=== PATIENT | male | born 1940 | race Caucasian/White ===

== ENCOUNTER 2016-07-04 14:34 | Observation (INO) | payer MEDICARE, BC ==
[2016-07-04] MEDS ORDERED: ASPIRIN 81 MG TABLET, CHEWABLE PO ONE (15:02)
--- NOTE | 2016-07-04 15:03 | ER Document Report ---
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 Original Note: ED Medical Screen (RME) - General Stated Complaint: CHEST PAIN Mode of Arrival: Wheelchair Information source: Patient Notes: Patient presents complaining of chest pain that started yesterday. Patient states that he took nitroglycerin at home that helped his chest pain although it is not completely resolved. Pt reports feeling lightheaded at home and had vision that "flickered". hx: CVA, hypertension, diabetes, stents 3 I have greeted and performed a rapid initial assessment of this patient. A comprehensive ED assessment and evaluation of the patient, analysis of test results and completion of the medical decision making process will be conducted by additional ED providers. TRAVEL OUTSIDE OF THE [place] IN LAST 30 DAYS: No - Related Data Allergies/Adverse Reactions: No Known Allergies Allergy (Verified 04/13/13 23:49) Past Medical History - Past Medical History Cardiac Medical History: Reports: Hx Atrial Fibrillation, Hx Hypercholesterolemia, Hx Hypertension Endocrine Medical History: Reports: Hx Diabetes Mellitus Type 2 GI Medical History: Reports: Hx Gastroesophageal Reflux Disease Past Surgical History: Reports: Hx Cardiac Surgery - carotid, angioplasty, Hx Tonsillectomy - Immunizations Hx Diphtheria, Pertussis, Tetanus Vaccination: Yes Physical Exam - Cardiovascular Rhythm: Regular Heart sounds: S1 appreciated, S2 appreciated
[2016-07-04 15:27] LABS: ABSOLUTE LYMPHOCYTES (AUTO) 1.4 10^3/uL (0.5-4.7); ABSOLUTE MONOCYTES (AUTO) 0.6 10^3/uL (0.1-1.4); ABSOLUTE NEUT (AUTO) 9.5 10^3/uL (1.7-8.2); BASOPHILS % (AUTO) 0.3 % (0-2); EOSINOPHILS % (AUTO) 0.2 % (0-6); HEMOGLOBIN 12.6 g/dL (13.5-17.0); HGB HCT DIFFERENCE 0.8; LYMPHOCYTES % (AUTO) 12.1 % (13-45); MEAN CORPUSCULAR HEMOGLOBIN 32.7 pg (27.0-33.4); MEAN CORPUSCULAR HGB CONC 34.1 g/dL (32.0-36.0); MEAN CORPUSCULAR VOLUME 96 fl (80-97); MONOCYTES % (AUTO) 4.9 % (3-13); RED BLOOD COUNT 3.85 10^6/uL (4.35-5.55); RED CELL DISTRIBUTION WIDTH 13.3 % (11.5-14.0); SEGMENTED NEUTROPHILS % (AUTO) 82.5 % (42-78); WHITE BLOOD COUNT 11.5 10^3/uL (4.0-10.5)
[2016-07-04 15:49] LABS: ALANINE AMINOTRANSFERASE 40 U/L (21-72); ALBUMIN 3.9 g/dL (3.5-5.0); ALKALINE PHOSPHATASE 85 U/L (38-126); ANION GAP 12 (5-19); ASPARTATE AMINO TRANSFERASE 26 U/L (17-59); BILIRUBIN,TOTAL 0.7 mg/dL (0.2-1.3); BLOOD UREA NITROGEN 27 mg/dL (7-20); CALCIUM 9.4 mg/dL (8.4-10.2); CARBON DIOXIDE 26 mmol/L (22-30); CHLORIDE 102 mmol/L (98-107); CREATINE KINASE 57 U/L (55-170); CREATININE RESULT 1.12 mg/dL (0.52-1.25); GLUCOSE 119 mg/dL (75-110); LIPASE 124.4 U/L (23-300); MAGNESIUM 1.6 mg/dL (1.6-2.3); POTASSIUM 4.3 mmol/L (3.6-5.0); SODIUM 139.7 mmol/L (137-145); TOTAL PROTEIN 6.4 g/dL (6.3-8.2)
[2016-07-04 16:01] LABS: TROPONIN I < 0.012 ng/mL
--- NOTE | 2016-07-04 17:42 | ER Document Report ---
ED General - General Chief Complaint: Chest Pain Stated Complaint: CHEST PAIN Mode of Arrival: Wheelchair Information source: Patient, Relative Notes: 76-year-old male history of triple bypass presents with complaints of chest pain that started earlier today. Patient notes chest pain associated with shortness of breath difficult to breathing. Patient denies any fevers or chills TRAVEL OUTSIDE OF THE [place] IN LAST 30 DAYS: No - HPI Onset: Just prior to arrival Onset/Duration: Persistent Quality of pain: Pressure Severity: Mild Pain Level: 1 Associated symptoms: Chest pain, Shortness of breath Exacerbated by: Walking Relieved by: Denies Similar symptoms previously: Yes Recently seen / treated by doctor: Yes - Related Data Allergies/Adverse Reactions: No Known Allergies Allergy (Verified 04/13/13 23:49) Home Medications: Current Home Medications Acetaminophen [Tylenol Extra Strength 500 mg Tablet] 2 tab PO BID 07/04/16 [ History] Alfuzosin HCl [Alfuzosin HCl ER] 10 mg PO QPM 07/04/16 [History] Amlodipine Besylate [Norvasc 5 mg Tablet] 5 mg PO Q12 07/04/16 [History] Ascorbic Acid [Vitamin C] 1,000 mg PO DAILY 07/04/16 [History] Aspirin [Aspirin 81 mg Chewable Tablet] 81 mg PO QPM 07/04/16 [History] Atorvastatin Calcium [Lipitor 80 mg Tablet] 80 mg PO QHS 07/04/16 [History] Calcium Carb/Magnesium Oxid/D3 [Calcium Magnesium + D Tablet] 1 each PO BID 11/12 [History] Ferrous Sulfate [Feosol 325 mg Tablet] 325 mg PO QPM 07/04/16 [History] Glipizide 5 mg PO DAILY 07/04/16 [History] Hydralazine HCl [Apresoline 50 mg Tablet] 50 mg PO Q12 07/04/16 [History] Hydrochlorothiazide 25 mg PO DAILY 07/04/16 [History] Losartan Potassium [Cozaar 100 mg Tablet] 100 mg PO DAILY 07/04/16 [History] Metformin HCl [Glucophage] 500 mg PO BIDACBS 07/04/16 [History] Multivitamin [Multivitamins] 1 each PO DAILY 07/04/16 [History] Omeprazole 20 mg PO BID 07/04/16 [History] Tolterodine Tartrate [Tolterodine Tartrate ER] 4 mg PO QPM 07/04/16 [History] Past Medical History - General Information source: Patient - Social History Smoking Status: Unknown if Ever Smoked Cigarette use (# per day): No Chew tobacco use (# tins/day): No Smoking Education Provided: No Family History: Reviewed & Not Pertinent Patient has suicidal ideation: No Patient has homicidal ideation: No - Past Medical History Cardiac Medical History: Reports: Hx Atrial Fibrillation, Hx Hypercholesterolemia, Hx Hypertension Endocrine Medical History: Reports: Hx Diabetes Mellitus Type 2 Renal/ Medical History: Denies: Hx Peritoneal Dialysis GI Medical History: Reports: Hx Gastroesophageal Reflux Disease Past Surgical History: Reports: Hx Cardiac Surgery - carotid, angioplasty, Hx Tonsillectomy - Immunizations Hx Diphtheria, Pertussis, Tetanus Vaccination: Yes Review of Systems - Review of Systems Notes: REVIEW OF SYSTEMS: CONSTITUTIONAL : Denies fever, chills, or sweats. Denies recent illness. EENT: Denies eye, ear, throat, or mouth pain or symptoms. Denies nasal or sinus congestion or discharge. Denies throat, tongue, or mouth swelling or difficulty swallowing. CARDIOVASCULAR: Admits to chest pain RESPIRATORY: Admits shortness of breath GASTROINTESTINAL: Denies abdominal pain or distention. Denies nausea, vomiting , or diarrhea. Denies blood in vomitus, stools, or per rectum. Denies black, tarry stools. Denies constipation. GENITOURINARY: Denies difficulty urinating, painful urination, burning, frequency, blood in urine, or discharge. MUSCULOSKELETAL: Denies back or neck pain or stiffness. Denies joint pain or swelling. SKIN: Denies rash, lesions or sores. HEMATOLOGIC : Denies easy bruising or bleeding. LYMPHATIC: Denies swollen, enlarged glands. NEUROLOGICAL: Denies confusion or altered mental status. Denies passing out or loss of consciousness. Denies dizziness or lightheadedness. Denies headache. Denies weakness or paralysis or loss of use of either side. Denies problems with gait or speech. Denies sensory loss, numbness, or tingling. Denies seizures. PSYCHIATRIC: Denies anxiety or stress. Denies depression, suicidal ideation, or homicidal ideation. ALL OTHER SYSTEMS REVIEWED AND NEGATIVE. Dictation was performed using Cued voice recognition software PHYSICAL EXAMINATION: GENERAL: Well-appearing, well-nourished and in no acute distress. HEAD: Atraumatic, normocephalic. EYES: Pupils equal round and reactive to light, extraocular movements intact, sclera anicteric, conjunctiva are normal. ENT: Nares patent, oropharynx clear without exudates. Moist mucous membranes. NECK: Normal range of motion, supple without lymphadenopathy LUNGS: Breath sounds clear to auscultation bilaterally and equal. No wheezes rales or rhonchi. HEART: Regular rate and rhythm without murmurs ABDOMEN: Soft, nontender, nondistended abdomen. No guarding, no rebound. No masses appreciated. Musculoskeletal: Normal range of motion, no pitting or edema. No cyanosis. NEUROLOGICAL: Cranial nerves grossly intact. Normal speech, normal gait. Normal sensory, motor exams PSYCH: Normal mood, normal affect. SKIN: Warm, Dry, normal turgor, no rashes or lesions noted. Physical Exam - Vital signs Vitals: Pulse Ox 96 07/04/16 17:02 Course - Re-evaluation Re-evalutation: 07/04/16 20:25 Given patient's significant cardiac history and complaints of chest pain I do believe an observation overnight is appropriate for sit cardiac enzymes EKG are normal at this time - Vital Signs Vital signs: Temp Pulse Resp BP Pulse Ox 12 130/82 H 97 07/04/16 18:01 07/04/16 18:01 07/04/16 18:01 - Laboratory Result Diagrams: 07/04/16 15:10 07/04/16 15:10 Laboratory results interpreted by me: 07/04/16 07/04/16 15:10 15:10 WBC 11.5 H RBC 3.85 L Hgb 12.6 L Hct 37.0 L Seg Neutrophils % 82.5 H Lymphocytes % 12.1 L Absolute Neutrophils 9.5 H BUN 27 H Glucose 119 H - Diagnostic Test Radiology reviewed: Image reviewed, Reports reviewed - EKG Interpretation by [place] EKG shows normal: Sinus rhythm, [place], Intervals, QRS Complexes Discharge - Discharge Clinical Impression: Chest pain Qualifiers: Chest pain type: unspecified Qualified Code(s): R07.9 - Chest pain, unspecified Coronary artery disease Qualifiers: Coronary Disease-Associated Artery/Lesion type: unspecified vessel or lesion type [place] vs. transplanted heart: [place] heart Associated angina: without angina Qualified Code(s): I25.10 - Atherosclerotic heart disease of [place] coronary artery without angina pectoris Condition: Stable Disposition: HOME, SELF-CARE Admitting Provider: Hospitalist Unit Admitted: Telemetry
[2016-07-04] MEDS ORDERED: LIDOCAINE 2% VISCOUS SOLN 20 ML UDCUP PO PRN (18:26)
[2016-07-04] MEDS ORDERED: MAG HYDROX/AL HYDROX/SIMETH SUSP 30 ML UDCUP PO PRN (18:26)
[2016-07-04] MEDS ORDERED: METOCLOPRAMIDE HCL ORAL SOLN 10 MG/10 ML UDCUP PO PRN (18:26)
[2016-07-04] MEDS ORDERED: DEXTROSE 40% GEL 15 GM TUBE PO PRN ×2 (18:26)
[2016-07-04] MEDS ORDERED: INSULIN REG, HUMAN 100 UNIT/ML 3 ML VIAL (PYX) SUBCUT PRN (18:26)
[2016-07-04] MEDS ORDERED: DEXTROSE 50%-WATER 25 GM/50 ML DISP.SYRIN IV PRN ×2 (18:26)
[2016-07-04] MEDS ORDERED: GLUCAGON,HUMAN RECOMB 1 MG INJ IM PRN (18:26)
--- NOTE | 2016-07-04 18:39 | PDOC H&P ---
History of Present Illness Patient complains of: Chest pain History of Present Illness: NELA ALVARADO is a 76 year old male with a history of coronary artery disease with history of PTCA done by Dr. Tho Slater [facility] who presents with chest pain. Patient reports that he began experiencing chest pain yesterday evening after eating ice cream. He described it as substernal chest pressure. It did not radiate. There was no associated nausea or diaphoresis or palpitations. He experienced the same pain again today after eating breakfast with milk. When he told his that he was having chest discomfort she insisted that he come to the hospital. Patient denies having any associated shortness of breath. Denies any orthopnea or PND. Denies any dyspnea on exertion. Reports that when he had the pain was 8 out of 10 and lasted 2 or 3 minutes and then resolved spontaneously. The patient denies any cough. Denies any fevers or chills. he reports that this discomfort is different than what type of symptoms he was having prior to his coronary angioplasties. Past Medical History Cardiac Medical History: Reports: Atrial Fibrillation, Coronary Artery Disease, Hyperlipidema, Hypertension Neurological Medical History: Reports: Ischemic CVA Endocrine Medical History: Reports: Diabetes Mellitus Type 2 Malignancy Medical History: Reports: None GI Medical History: Reports: Gastroesophageal Reflux Disease Musculoskeltal Medical History: Reports: None Skin Medical History: Reports: None Psychiatric Medical History: Reports: None Traumatic Medical History: Reports: None Hematology: Reports: None Infectious Medical History: Reports: None Past Surgical History Past Surgical History: Reports: Carotid Endarterectomy, Coronary Stent, Tonsillectomy Social History Information Source: Patient Lives with: Spouse/Significant other Smoking Status: Never Smoker Frequency of Alcohol Use: None Hx Recreational Drug Use: No Drugs: None - Advance Directive Resuscitation Status: Full Code Family History Family History: Father at age 57 from coronary artery disease. Mother at age 86 with uterine cancer. Parental Family History Reviewed: Yes Children Family History Reviewed: No Sibling(s) Family History Reviewed.: No Medication/Allergy Home Medications: Amlodipine Besylate 1 tab PO DAILY 04/13/13 Ascorbic Acid [Vitamin C] 1,000 mg PO DAILY 04/13/13 Calcium Carb/Magnesium Oxid/D3 [Calcium Magnesium + D Tablet] 1 tab PO BID 04/13 Clopidogrel Bisulfate [Plavix 75 Mg Tablet] 75 mg PO DAILY 04/13/13 Glipizide [Glocotrol 5 Mg Tablet] 5 mg PO DAILY 04/13/13 Levalbuterol Tartrate [Xopenex Hfa] 2 puff IH Q8H 04/13/13 Losartan Potassium 100 mg PO DAILY 04/13/13 Metformin HCl [Glucophage 500 Mg Tablet] 500 mg PO BID 04/13/13 Multivitamin [Multi Vitamin Daily] 1 each PO DAILY 04/13/13 Omeprazole [Prilosec 20 mg Capsule] 20 mg PO BID 04/13/13 Simvastatin [Zocor 20 mg Tablet] 20 mg PO QHS 04/13/13 Tiotropium [place] [Spiriva [place] 18 mcg/dose (30 Dose)] 1 cap IH DAILY Meclizine HCl [Antivert 25 mg Tablet] 25 mg PO TID #20 tablet 04/14/13 Allergies/Adverse Reactions: No Known Allergies Allergy (Verified 04/13/13 23:49) Review of Systems Constitutional: ABSENT: chills, fever(s), headache(s), weight gain, weight loss Eyes: ABSENT: visual disturbances Ears: ABSENT: hearing changes Cardiovascular: PRESENT: as per HPI Respiratory: ABSENT: cough, hemoptysis Gastrointestinal: PRESENT: heartburn Musculoskeletal: ABSENT: joint swelling Integumentary: ABSENT: rash, wounds Neurological: ABSENT: abnormal gait, abnormal speech, confusion, dizziness, focal weakness, syncope Psychiatric: ABSENT: anxiety, depression Hematologic/Lymphatic: ABSENT: easy bleeding, easy bruising Physical Exam Vital Signs: Temp Pulse Resp BP Pulse Ox 98 07/04/16 17:03 General appearance: PRESENT: no acute distress, morbidly obese Head exam: PRESENT: atraumatic, normocephalic Eye exam: PRESENT: conjunctiva pink, EOMI, PERRLA. ABSENT: scleral icterus Ear exam: PRESENT: normal external ear exam Mouth exam: PRESENT: moist, tongue midline Neck exam: ABSENT: carotid bruit, JVD, lymphadenopathy, thyromegaly Respiratory exam: PRESENT: clear to auscultation sushma. ABSENT: rales, rhonchi, wheezes Cardiovascular exam: PRESENT: RRR. ABSENT: diastolic murmur, rubs, systolic murmur Pulses: PRESENT: normal dorsalis pedis pul GI/Abdominal exam: PRESENT: normal bowel sounds, soft. ABSENT: distended, guarding, mass, organolmegaly, rebound, tenderness Rectal exam: PRESENT: deferred Extremities exam: ABSENT: calf tenderness, clubbing, pedal edema Neurological exam: PRESENT: alert, awake, oriented to person, oriented to place , oriented to time, oriented to situation, CN II-XII grossly intact. ABSENT: motor sensory deficit Psychiatric exam: PRESENT: appropriate affect, normal mood. ABSENT: homicidal ideation, suicidal ideation Skin exam: PRESENT: dry, intact, warm. ABSENT: cyanosis, rash Results Laboratory Results: 07/04/16 15:10 07/04/16 15:10 07/04/16 07/04/16 15:10 15:10 WBC 11.5 H RBC 3.85 L Hgb 12.6 L Hct 37.0 L MCV 96 MCH 32.7 MCHC 34.1 RDW 13.3 Plt Count 185 Seg Neutrophils % 82.5 H Lymphocytes % 12.1 L Monocytes % 4.9 Eosinophils % 0.2 Basophils % 0.3 Absolute Neutrophils 9.5 H Absolute Lymphocytes 1.4 Absolute Monocytes 0.6 Absolute Eosinophils 0.0 Absolute Basophils 0.0 Sodium 139.7 Potassium 4.3 Chloride 102 Carbon Dioxide 26 Anion Gap 12 BUN 27 H Creatinine 1.12 Est GFR ( Amer) > 60 Est GFR (Non-Af Amer) > 60 Glucose 119 H Calcium 9.4 Magnesium 1.6 Total Bilirubin 0.7 AST 26 ALT 40 Alkaline Phosphatase 85 Total Protein 6.4 Albumin 3.9 Lipase 124.4 07/04/16 07/04/16 15:10 15:10 Creatine Kinase 57 CK-MB (CK-2) 0.80 Troponin I < 0.012 Impressions: Chest X-Ray 07/04/16 15:02 IMPRESSION: Few asymmetrical markings on the right that may represent atelectasis or infiltrate versus scarring that has developed since 2007. Assessment & Plan - Diagnosis (1) Chest pain Qualifiers: Chest pain type: unspecified Qualified Code(s): R07.9 - Chest pain, unspecified Is this a current diagnosis for this admission?: YesPlan: The patient does have a history of coronary artery disease and has had PTCA done by Dr. Plata at [facility]. This pain is different than what he's experienced previously however. Occurred both times after eating dairy products and he has had worsening acid reflux symptoms in spite of taking Prilosec. We will increase his PPI to twice a day. We'll check serial cardiac enzymes and monitor on telemetry. If his enzymes are negative he'll be able to be discharged and followed as an outpatient with his ambulatory technologist. We' ll also start the patient on GI cocktail. (2) Coronary artery disease Is this a current diagnosis for this admission?: YesPlan: Patient has a history of coronary artery disease but reports his pain is different. We'll continue with his Plavix. He is followed by [facility] in [place]. We'll check serial cardiac enzymes and monitor on telemetry. (3) Diabetes Is this a current diagnosis for this admission?: YesPlan: We'll hold his oral agents and cover with sliding scale insulin. (4) Hyperlipidemia Is this a current diagnosis for this admission?: YesPlan: Patient has been on Lipitor 80 mg daily. (5) Hypertension Is this a current diagnosis for this admission?: YesPlan: We'll continue with the Norvasc, losartan. (6) Atrial fibrillation Is this a current diagnosis for this admission?: YesPlan: Patient is currently in a regular rhythm. He is not on anticoagulation. Will defer that to his ambulatory technologist. (7) Gastroesophageal reflux disease Is this a current diagnosis for this admission?: YesPlan: Patient is on Prilosec as an outpatient. We will increase his PPI to twice a day. Also will give GI cocktail while hospitalized. - Time Time Spent: 50 to 70 Minutes - Plan Summary Plan Summary: We'll admit as an observation as I anticipate this will require less than a 2 midnight hospital stay.
[2016-07-04] MEDS ORDERED: ACETAMINOPHEN 325 MG TABLET PO PRN (20:56)
[2016-07-04] MEDS ORDERED: ONDANSETRON 4 MG TAB.RAPDIS PO PRN (20:57)
[2016-07-04] MEDS ORDERED: LIDOCAINE 2% VISCOUS SOLN 20 ML UDCUP PO ONE (21:00)
[2016-07-04] MEDS ORDERED: MAG HYDROX/AL HYDROX/SIMETH SUSP 30 ML UDCUP PO ONE (21:00)
[2016-07-04] MEDS ORDERED: METOCLOPRAMIDE HCL ORAL SOLN 10 MG/10 ML UDCUP PO ONE (21:15)
[2016-07-04] MEDS ORDERED: ATORVASTATIN CALCIUM 80 MG TABLET PO SCH (22:00)
[2016-07-05 00:13] LABS: CREATINE KINASE MB 0.65 ng/mL (<4.55)
[2016-07-05 00:15] LABS: TROPONIN I < 0.012 ng/mL
[2016-07-05 05:59] LABS: HEMATOCRIT 35.9 % (37.9-51.0); HEMOGLOBIN 12.2 g/dL (13.5-17.0); HGB HCT DIFFERENCE 0.7; MEAN CORPUSCULAR HEMOGLOBIN 32.1 pg (27.0-33.4); MEAN CORPUSCULAR VOLUME 95 fl (80-97); RED CELL DISTRIBUTION WIDTH 13.2 % (11.5-14.0); WHITE BLOOD COUNT 7.4 10^3/uL (4.0-10.5)
[2016-07-05] MEDS ORDERED: LANSOPRAZOLE 30 MG TAB.RAP.DR PO SCH (06:00)
[2016-07-05 06:22] LABS: ANION GAP 12 (5-19); BLOOD UREA NITROGEN 22 mg/dL (7-20); CALCIUM 8.9 mg/dL (8.4-10.2); CARBON DIOXIDE 26 mmol/L (22-30); CHLORIDE 104 mmol/L (98-107); CREATININE RESULT 0.81 mg/dL (0.52-1.25); GLUCOSE 101 mg/dL (75-110); MAGNESIUM 1.5 mg/dL (1.6-2.3); POTASSIUM 3.7 mmol/L (3.6-5.0); SODIUM 141.6 mmol/L (137-145)
[2016-07-05 06:30] LABS: CREATINE KINASE MB 0.61 ng/mL (<4.55); TROPONIN I 0.012 ng/mL
[2016-07-05] MEDS ORDERED: ENOXAPARIN SODIUM INJ 40 MG/0.4 ML DISP.SYRIN SUBCUT SCH (08:00)
[2016-07-05] MEDS ORDERED: MULTIVITAMIN TABLET PO SCH ×2 (10:00)
[2016-07-05] MEDS ORDERED: D3 PO SCH (10:00)
[2016-07-05] MEDS ORDERED: CALCIUM CARBONATE 250 MG/VITAMIN D3 125 UNIT TABLET PO SCH (10:00)
[2016-07-05] MEDS ORDERED: CLOPIDOGREL BISULFATE 75 MG TABLET PO SCH (10:00)
[2016-07-05] MEDS ORDERED: TIOTROPIUM BROMIDE DPI 5 CAP/KIT (18 MCG/CAP) IH SCH (10:00)
[2016-07-05] MEDS ORDERED: MAGNESIUM OXID PO SCH (10:00)
[2016-07-05] MEDS ORDERED: ASCORBIC ACID 500 MG TABLET PO SCH (10:00)
[2016-07-05] MEDS ORDERED: AMLODIPINE BESYLATE 5 MG TABLET PO SCH ×2 (10:00)
[2016-07-05] MEDS ORDERED: [UNRECOGNIZED DRUG - OTHER] PO SCH (10:00)
[2016-07-05] MEDS ORDERED: (PENDING PHARMACY ID) (Losartan Potassium [Losartan Potassium] 100 MG) PO SCH (10:00)
[2016-07-05] MEDS ORDERED: CALCIUM CARB PO SCH (10:00)
[2016-07-05] MEDS ORDERED: LOSARTAN POTASSIUM 50 MG TABLET PO SCH (10:00)
--- NOTE | 2016-07-05 10:07 | PDOC DISCHARGE SUMMARY ---
General - Admit/Disc Date/PCP Admission Date/Primary Care Provider: 07/04/16 18:20 Discharge Date: 07/05/16 - Discharge Diagnosis (1) Chest pain Is this a current diagnosis for this admission?: Yes (2) Gastroesophageal reflux disease Is this a current diagnosis for this admission?: Yes (3) Atrial fibrillation Is this a current diagnosis for this admission?: Yes (4) Coronary artery disease Is this a current diagnosis for this admission?: Yes (5) Diabetes Is this a current diagnosis for this admission?: Yes (6) Hyperlipidemia Is this a current diagnosis for this admission?: Yes (7) Hypertension Is this a current diagnosis for this admission?: Yes - Additional Information Resuscitation Status: Full Code Discharge Diet: Cardiac - low-fat low-salt, Diabetic - no concentrated sweets Discharge Activity: Activity As Tolerated, Balance Activity w/Rest Home Medications: Acetaminophen [Tylenol Extra Strength 500 mg Tablet] 2 tab PO BID 07/04/16 Alfuzosin HCl [Alfuzosin HCl ER] 10 mg PO QPM 07/04/16 Amlodipine Besylate [Norvasc 5 mg Tablet] 5 mg PO Q12 07/04/16 Ascorbic Acid [Vitamin C] 1,000 mg PO DAILY 07/04/16 Aspirin [Aspirin 81 mg Chewable Tablet] 81 mg PO QPM 07/04/16 Atorvastatin Calcium [Lipitor 80 mg Tablet] 80 mg PO QHS 07/04/16 Calcium Carb/Magnesium Oxid/D3 [Calcium Magnesium + D Tablet] 1 each PO BID 11/12 Ferrous Sulfate [Feosol 325 mg Tablet] 325 mg PO QPM 07/04/16 Glipizide 5 mg PO DAILY 07/04/16 Hydralazine HCl [Apresoline 50 mg Tablet] 50 mg PO Q12 07/04/16 Hydrochlorothiazide 25 mg PO DAILY 07/04/16 Losartan Potassium [Cozaar 100 mg Tablet] 100 mg PO DAILY 07/04/16 Metformin HCl [Glucophage] 500 mg PO BIDACBS 07/04/16 Multivitamin [Multivitamins] 1 each PO DAILY 07/04/16 Omeprazole 20 mg PO BID 07/04/16 Tolterodine Tartrate [Tolterodine Tartrate ER] 4 mg PO QPM 07/04/16 History of Present Illness Patient complains of: Chest pain History of Present Illness: NELA ALVARADO is a 76 year old male, with coronary artery disease, diabetes mellitus, hypertension, presents with the hospital because of chest pain after eating ice cream. This happened twice on the same medication. Patient had prior cardiac catheterization and stent placement done by his soils technician in [place]. For details please refer to history and physical examination performed by the admitting physician. Hospital Course Hospital Course: The patient was admitted to telemetry. Serial cardiac enzymes were obtained and they were negative for myocardial infarction. EKG sinus w/ RBBB pattern w/c is old. The patient was placed on proton pump inhibitor, and GI cocktail was likewise given. The patient's chest discomfort has resolved. He was continued on his antiplatelet medications, and antihypertensive medications. Patient was placed on DVT prophylaxis, as well as supplemental oxygen. Stress test was offered but the patient and the family wants to continue any further workup on an outpatient basis. They wanted to follow up with his soils technician in [place]. The rest of the hospital stay is unremarkable. Physical Exam Vital Signs: Temp Pulse Resp BP Pulse Ox 98.5 F 56 L 14 125/58 L 92 07/05/16 08:10 07/05/16 08:10 07/05/16 08:10 07/05/16 08:10 07/05/16 08:10 Intake & Output 07/04/16 07/05/16 07/06/16 06:59 06:59 06:59 Intake Total 500 Balance 500 Weight 116 kg General appearance: PRESENT: no acute distress, cooperative Head exam: PRESENT: normocephalic Eye exam: PRESENT: EOMI Mouth exam: PRESENT: moist, neck supple Neck exam: ABSENT: JVD Respiratory exam: PRESENT: clear to auscultation sushma Cardiovascular exam: PRESENT: bradycardia, RRR GI/Abdominal exam: PRESENT: normal bowel sounds, soft. ABSENT: distended, tenderness Extremities exam: ABSENT: pedal edema Neurological exam: PRESENT: alert, awake, oriented to person, oriented to place , oriented to time, oriented to situation Skin exam: PRESENT: dry, warm. ABSENT: cyanosis Results Laboratory Results: 07/05/16 05:44 07/05/16 05:44 07/05/16 07/05/16 05:44 05:44 WBC 7.4 RBC 3.80 L Hgb 12.2 L Hct 35.9 L MCV 95 MCH 32.1 MCHC 34.0 RDW 13.2 Plt Count 164 Sodium 141.6 Potassium 3.7 Chloride 104 Carbon Dioxide 26 Anion Gap 12 BUN 22 H Creatinine 0.81 Est GFR ( Amer) > 60 Est GFR (Non-Af Amer) > 60 Glucose 101 Calcium 8.9 Magnesium 1.5 L 07/04/16 07/04/16 07/05/16 23:35 23:35 05:44 Creatine Kinase 52 L 53 L CK-MB (CK-2) 0.65 Troponin I < 0.012 07/05/16 05:44 Creatine Kinase CK-MB (CK-2) 0.61 Troponin I 0.012 Impressions: Chest X-Ray 07/04/16 15:02 IMPRESSION: Few asymmetrical markings on the right that may represent atelectasis or infiltrate versus scarring that has developed since 2007. Qualifiers PATEINT BEING DISCHARGED WITH ANY OF THE FOLLOWING DIAGNOSIS?: No Plan Discharge Plan: Follow-up with primary care physician in one to 2 weeks. Follow-up with soils technician Dr. Slater in [place] in one week. Time Spent: Less than 30 Minutes
[2016-07-05 11:28] VITALS: BP 119/57
--- NOTE | 2016-07-06 13:52 | EKG REPORT ---
SEVERITY:- ABNORMAL ECG - SINUS RHYTHM RIGHT BUNDLE BRANCH BLOCK : Confirmed by: Carlos Manuel Bianchi MD 06-Jul-2016 13:51:13
== END 2016-07-05 11:45 | disposition home or self-care (01) ==
LOC: ER 14:34 → EH 18:20 → 4W 22:30
PROVIDERS: ADMIT Internal Medicine; ATTEND Internal Medicine
DX: R07.9 Chest pain, unspecified (principal); I25.10 Atherosclerotic heart disease of native coronary artery without angina pectoris; I48.91 Unspecified atrial fibrillation; K21.9 Gastro-esophageal reflux disease without esophagitis; E11.9 Type 2 diabetes mellitus without complications; E78.5 Hyperlipidemia, unspecified; I10 Essential (primary) hypertension; Z79.82 Long term (current) use of aspirin; Z79.899 Other long term (current) drug therapy; Z79.84 Long term (current) use of oral hypoglycemic drugs; Z86.73 Personal history of transient ischemic attack (TIA), and cerebral infarction without residual deficits; Z95.5 Presence of coronary angioplasty implant and graft
CPT/HCPCS: 93005; 99285; 36415 ×2; 82553 ×2; 82962 ×2; 82550 ×2; 83690; 83735 ×2; 85025; 85027; 80048; 80053; 84484 ×2; 71020; 93010; G0378 ×3; A9270 ×10; J3490 ×3; J1650